=== PATIENT | female | born 2000 | race African-American/Black ===

== ENCOUNTER 2023-10-21 13:02 | Inpatient (IN) | payer BC, SELFPAY ==
[2023-10-21 13:50] VITALS: BP 113/68; PULSE 93; TEMP 36.9
--- NOTE | 2023-10-21 14:45 | PC.NURSE ---
Discussed plan of care with pt. Will start IV, obtain lab work and plan on around [id number]. Pt states she doesn't feel like we are listening to her plan. Pt did not mention a plan prior to now. Asked pt what her plans were and she stated she doesn't want to have her here if she is not in labor. Pt states if her cervix doesn't change she will want to go home. Instructed Dr. Ramirez was concerned with having contractions and having had 2 previous c-sections, with the last one being less than a year ago. Pt states she is scheduled for a on 10/28 in [place]. Discussed leaving AMA. Pt states she will allow a SVE at 1500 and go from there.
--- NOTE | 2023-10-21 15:05 | PC.NURSE ---
Discussed unchanged SVE with pt. Pt states she would rather go home and leave AMA. Discussed possible uterine rupture and delivery outside of the hospital. Pt understands and still chooses to leave AMA.
--- NOTE | 2023-10-23 08:02 | WPDOBADMIT ---
Obstetrics - Admit Note Admission Note: record reviewed. No pertinent additions to the history and/or any subsequent changes in the physical findings that are not consistent with the expected course of the were found. Additions to the history and/or subsequent changes in the physical findings follow. 23-year-old 3 para 2003 female at 39 weeks gestation. Traveling from out of town and presented with irregular contractions. surveillance was reassuring, though she was found to be 3cm dilated. Due to 2 previous deliveries and likely early/prodromal labor recommendation was to stay and have her repeat performed. Patient declined and left AMA without being seen by myself.
== END 2023-10-21 15:30 | disposition left against medical advice (07) | DRG 566 ==
PROVIDERS: Admitting Provider Obstetrics & Gynecology; Visit Provider Obstetrics & Gynecology
DX: O47.1 False labor at or after 37 completed weeks of gestation (principal); O34.219 Maternal care for unspecified type scar from previous cesarean delivery; Z3A.39 39 weeks gestation of pregnancy